=== PATIENT | female | born 1995 ===

== ENCOUNTER 2017-08-25 12:17 | Emergency (ER) | payer BC, MEDICAID, OTHER ==
[2017-08-25 12:42] VITALS: BP 133/97; PULSE 109; RESP 18; TEMP 98.7; O2SAT 97
--- NOTE | 2017-08-25 13:37 | ED PDOC ---
HPI:Nausea, Vomiting, Diarrhea Time Seen by Provider: 08/25/17 12:49 Chief Complaint (Nursing): Abdominal Pain History Per: Patient History/Exam Limitations: no limitations Onset/Duration Of Symptoms: Days (1) Current Symptoms Are (Timing): Still Present Severity: Mild Quality Of Discomfort: Cramping Associated Symptoms: Nausea, Vomiting, Diarrhea. denies: Fever, Chills, Back Pain, Chest Pain, Constipation, Urinary Symptoms Exacerbating Factors: None Alleviating Factors: None Additional History Per: Patient Past Medical History Reviewed: Historical Data, Nursing Documentation, Vital Signs Vital Signs: Last Vital Signs Temp 98.7 F 08/25/17 12:38 Pulse 109 H 08/25/17 12:38 Resp 18 08/25/17 12:38 BP 133/97 H 08/25/17 12:38 Pulse Ox 97 08/25/17 12:38 - Medical History PMH: No Chronic Diseases, Migraine - Surgical History Surgical History: Cholecystectomy - Family History Family History: States: Unknown Family Hx - Living Arrangements Living Arrangements: With Family - Social History Current smoker - smoking cessation education provided: No - Home Medications Home Medications: Ambulatory Orders Medication Instructions Recorded Acetaminophen [Tylenol 325mg tab] 650 mg PO Q4 PRN #0 tab 06/27/15 Acetaminophen/Butalbital/Caf 1 tab PO Q8 PRN #0 tab 06/27/15 [Fioricet] Acyclovir 800 mg PO TID #0 tab 06/27/15 Ibuprofen [Motrin Tab] 600 mg PO Q6 PRN #0 tab 06/27/15 Nortriptyline [Pamelor] 10 mg PO DAILY #0 cap 06/27/15 methylPREDNISolone [Medrol] 4 mg PO BID #0 tab 06/27/15 methylPREDNISolone [Medrol] 4 mg PO DAILY #0 tab 06/27/15 methylPREDNISolone [Medrol] 4 mg PO TID #0 tab 06/27/15 Calcium Carbonate/Vitamin D3 1 each PO BID 10 Days tab.chew 08/25/17 [Calcium 500+D Tablet Chew] Ondansetron [Zofran Odt] 4 mg PO TID PRN #12 odt 08/25/17 - Allergies Allergies/Adverse Reactions: Allergies Allergy/AdvReac Type Severity Reaction Status Date / Time No Known Allergies Allergy Verified 06/24/15 19:59 Review of Systems ROS Statement: Except As Marked, All Systems Reviewed And Found Negative Constitutional: Negative for: Fever, Chills Cardiovascular: Negative for: Chest Pain, Palpitations Respiratory: Negative for: Cough, Shortness of Breath Gastrointestinal: Positive for: Nausea, Vomiting, Abdominal Pain, Diarrhea. Negative for: Constipation, Hematochezia, Hematemesis, Rectal Pain Genitourinary Female: Negative for: Dysuria, Vaginal Discharge Neurological: Negative for: Weakness, Numbness Physical Exam - Reviewed Nursing Documentation Reviewed: Yes Vital Signs Reviewed: Yes - Physical Exam Appears: Positive for: Uncomfortable Head Exam: Positive for: ATRAUMATIC, NORMAL INSPECTION, NORMOCEPHALIC Skin: Positive for: Normal Color, Warm, Dry Eye Exam: Positive for: Normal appearance, EOMI, PERRL ENT: Positive for: Pharynx Is (clear,mmm) Neck: Positive for: Normal, Painless ROM, Supple. Negative for: Decreased ROM, Limited ROM, Trachea Midline Cardiovascular/Chest: Positive for: Regular Rate, Rhythm, Chest Non Tender. Negative for: Edema, Gallop, Murmur, Bradycardia, Tachycardia Respiratory: Positive for: Normal Breath Sounds. Negative for: Decreased Breath Sounds, Accessory Muscle Use, Crackles, Rales, Rhonchi, Stridor, Wheezing Pulses-Radial (L): 2+ Pulses-Radial (R): 2+ Gastrointestinal/Abdominal: Positive for: Normal Exam, Bowel Sounds, Soft. Negative for: Tenderness Back: Positive for: Normal Inspection. Negative for: L CVA Tenderness, R CVA Tenderness Extremity: Positive for: Normal ROM. 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 Negative for: Motor/Sensory Deficits, Cerebellar Tests, Aphasia, Facial Droop - Laboratory Results Result Diagrams: 08/25/17 14:02 08/25/17 14:02 - ECG ECG: Positive for: Interpreted By Tx ECG Rhythm: Positive for: Normal QRS, Normal ST Segment, Sinus Rhythm. Negative for: ST/T Changes Interpretation Of Abn EKG: rate of 88 no evidence of ischemia O2 Sat by Pulse Oximetry: 97 Pulse Ox Interpretation: Normal - Radiology X-Ray: Interpreted by Tx X-Ray Interpretation: No Acute Disease - Other Rad No standard instances X-Ray: Interpreted by Me X-Ray Interpretation: abd xray obs series 4 views no signs of obstruction no fa under the diaphra - Progress ED Course And Treament: non obs bg pattern, x improved tony po ere will give tums for calcium supplementation corrected ca is 8.1. pt leaves ambulatory and in good spirits. Re-evaluation Time: 15:00 Condition: Improved Disposition - Clinical Impression Clinical Impression: Dehydration, Gastroenteritis, Hypocalcemia - Patient ED Disposition Is Patient to be Admitted: No Counseled Patient/Family Regarding: Studies Performed, Diagnosis, Need For Followup - Disposition Referrals: [facility] [Outside] Disposition: Routine/Home Disposition Time: 15:32 Condition: GOOD Additional Instructions: Follow up in 2 to 3 days or with your pmd Prescriptions: Calcium Carbonate/Vitamin D3 [Calcium 500+D Tablet Chew] 1 each PO BID 10 Days tab.chew Ondansetron [Zofran Odt] 4 mg PO TID PRN #12 odt PRN Reason: Nausea/Vomiting Instructions: Gastroenteritis (ED), Hypocalcemia (ED) Forms: [employer] (Slovenian)
[2017-08-25] MEDS ORDERED: Sodium Chloride 0.9% 1,000 ML IV ONE (13:38)
[2017-08-25 14:11] LABS: BASO % 0.3 % (0.0-2.0); EOS # 0.1 K/uL (0.0-0.7); EOS % 0.6 % (0.0-4.0); HEMATOCRIT 42.6 % (34.0-47.0); LYMPH # 0.7 K/uL (1.0-4.3); LYMPH % 6.8 % (20.0-40.0); MEAN CELL VOLUME 80.9 fl (81.0-99.0); MEAN CORPUSCULAR HEMOGLOBIN 26.5 pg (27.0-31.0); MEAN CORPUSCULAR HGB CONC 32.7 g/dL (33.0-37.0); MEAN PLATELET VOLUME 9.3 fl (7.2-11.7); MONO # 0.7 K/uL (0.0-0.8); MONO % 6.6 % (0.0-10.0); NEUT # 8.5 K/uL (1.8-7.0); NEUT % 85.7 % (50.0-75.0); NRBC % 0.2 % (0.0-0.0); PLATELET COUNT 255 K/uL (130-400); RED CELL DISTRIBUTION WIDTH 14.1 % (11.5-14.5); WHITE BLOOD COUNT 9.9 K/uL (4.8-10.8)
[2017-08-25 14:22] LABS: RBC URINE 4 /hpf (0-3); URINE BACTERIA MOD (<OCC); URINE BILIRUBIN NEGATIVE (NEGATIVE); URINE BLOOD NEGATIVE (NEGATIVE); URINE COLOR YELLOW (YELLOW); URINE GLUCOSE (UA) NEG (Normal); URINE KETONE NEGATIVE (NEGATIVE); URINE LEUKOCYTE ESTERASE NEG Leu/uL (Negative); URINE PROTEIN 100 mg/dL (NEGATIVE); URINE UROBILINOGEN 0.2-1.0 mg/dL (0.2-1.0); WBC URINE 4 /hpf (0-5)
[2017-08-25 14:30] LABS: ALKALINE PHOSPHATASE 29 U/L (38-126); ALT/SGPT 87 U/L (9-52); AMYLASE 36 U/L (30-110); AST/SGOT 71 U/L (14-36); BILIRUBIN,TOTAL 0.4 mg/dl (0.2-1.3); BLOOD UREA NITROGEN 14 mg/dl (7-17); CALCIUM 7.5 mg/dL (8.4-10.2); CARBON DIOXIDE 20 mmol/L (22-30); CHLORIDE 111 mmol/L (98-107); GFR AFRICAN-AMERICAN > 60; GLUCOSE,RANDOM 126 mg/dL (65-105); LIPASE 59 U/L (23-300); POTASSIUM 3.7 MMOL/L (3.6-5.0); SODIUM 140 mmol/l (132-148); TOTAL PROTEIN 6.1 G/DL (6.3-8.2)
[2017-08-25 14:34] LABS: ALB/GLOB RATIO 1.1 (1.0-2.1)
--- NOTE | 2017-08-25 14:37 | RAD ---
PROCEDURE: Radiographs of the chest and abdomen (obstructive series) HISTORY: vomiting COMPARISON: No prior. TECHNIQUE: AP radiograph of the chest, with upright and supine radiographs of the abdomen. FINDINGS: CHEST: Lungs: Clear. Cardiovascular: Normal size heart. No pulmonary vascular congestion. Pleura: No pleural fluid. No pneumothorax. Other findings: None. ABDOMEN AND PELVIS: Bowel: Unremarkable bowel gas pattern. No evidence of mechanical obstruction. Free air: None. Bones: Unremarkable. Other findings: None. IMPRESSION: Unremarkable radiographs of chest and abdomen. No evidence of mechanical bowel obstruction. Concordant results with the preliminary interpretation rendered by the emergency department physician procedure.
[2017-08-25] MEDS ORDERED: Calcium Gluconate 4.65 mEq/10 ml Inj IV ONE (14:51)
[2017-08-25 15:04] LABS: NEUTROPHIL 86 % (42-75); TOTAL CELLS COUNTED 100
--- NOTE | 2017-08-26 08:27 | CARD ---
APPROVED REPORT EKG Measurement Heart [id number] [place] [id number] <Conclusion> Normal sinus rhythm Normal ECG
== END 2017-08-25 15:47 | disposition home or self-care (01) ==
LOC: H.ER 12:17
DX: E86.0 Dehydration (principal); K52.9 Noninfective gastroenteritis and colitis, unspecified; E83.51 Hypocalcemia
CPT/HCPCS: 74022; 80053; 81003; 81025; 82150; 83690; 84484; 84703; 85025; 93005; 99284; J7040

== ENCOUNTER 2017-12-06 20:01 | Emergency (ER) | payer BC, OTHER ==
[2017-12-06 20:15] VITALS: TEMP 98.8; O2SAT 98
[2017-12-06 21:18] VITALS: BP 128/67; PULSE 88; RESP 20
--- NOTE | 2017-12-06 21:58 | ED PDOC ---
HPI: Back Time Seen by Provider: 12/06/17 20:16 Chief Complaint (Nursing): Back Pain Chief Complaint (Provider): Back Pain History Per: Patient History/Exam Limitations: no limitations Onset/Duration Of Symptoms: Days (x2) Current Symptoms Are (Timing): Still Present Additional Complaint(s): 22 year old female with a history of migraines presents to the ER for evaluation of radiating back pain onset 2 days ago. Patient reports chronic back pain for three years and visited her PMD 3 days ago. She also states that she has an MRI scheduled in two days and reports incontinence while sleeping. She denies any fever, chills, nausea, vomiting, diarrhea, or abdominal pain. Patient offers no other medical complaints at this time. PMD: non-[facility] provider Past Medical History Reviewed: Historical Data, Nursing Documentation, Vital Signs Vital Signs: Last Vital Signs Temp 98.8 F 12/06/17 20:12 Pulse 88 12/06/17 21:18 Resp 20 12/06/17 21:18 BP 128/67 12/06/17 21:18 Pulse Ox 98 12/06/17 21:18 - Medical History PMH: Migraine - Surgical History Surgical History: Cholecystectomy, (x2) - Family History Family History: States: Unknown Family Hx - Immunization History Hx Tetanus Toxoid Vaccination: No Hx Influenza Vaccination: No Hx Pneumococcal Vaccination: No - Home Medications Home Medications: Ambulatory Orders Medication Instructions Recorded Acetaminophen [Tylenol 325mg tab] 650 mg PO Q4 PRN #0 tab 06/27/15 Acetaminophen/Butalbital/Caf 1 tab PO Q8 PRN #0 tab 06/27/15 [Fioricet] Acyclovir 800 mg PO TID #0 tab 06/27/15 Ibuprofen [Motrin Tab] 600 mg PO Q6 PRN #0 tab 06/27/15 Nortriptyline [Pamelor] 10 mg PO DAILY #0 cap 06/27/15 methylPREDNISolone [Medrol] 4 mg PO BID #0 tab 06/27/15 methylPREDNISolone [Medrol] 4 mg PO DAILY #0 tab 06/27/15 methylPREDNISolone [Medrol] 4 mg PO TID #0 tab 06/27/15 Calcium Carbonate/Vitamin D3 1 each PO BID 10 Days tab.chew 08/25/17 [Calcium 500+D Tablet Chew] Ondansetron [Zofran Odt] 4 mg PO TID PRN #12 odt 08/25/17 traMADol [Ultram] 50 mg PO Q6H PRN #15 tab 12/06/17 - Allergies Allergies/Adverse Reactions: Allergies Allergy/AdvReac Type Severity Reaction Status Date / Time No Known Allergies Allergy Verified 06/24/15 19:59 Review of Systems ROS Statement: Except As Marked, All Systems Reviewed And Found Negative Constitutional: Negative for: Fever, Chills Gastrointestinal: Negative for: Nausea, Vomiting, Abdominal Pain, Diarrhea Genitourinary Female: Positive for: Incontinence (while sleeping) Musculoskeletal: Positive for: Back Pain (chronic) Physical Exam - Reviewed Nursing Documentation Reviewed: Yes Vital Signs Reviewed: Yes - Physical Exam Appears: Positive for: Non-toxic, No Acute Distress Head Exam: Positive for: ATRAUMATIC, NORMAL INSPECTION, NORMOCEPHALIC Skin: Positive for: Normal Color, Warm, Dry Eye Exam: Positive for: Normal appearance Neck: Positive for: Normal, Painless ROM Respiratory: Positive for: Normal Breath Sounds. Negative for: Respiratory Distress Gastrointestinal/Abdominal: Positive for: Normal Exam, Soft. Negative for: Tenderness Back: Positive for: Normal Inspection. Negative for: L CVA Tenderness, R CVA Tenderness, Vertebral Tenderness Rectal: Positive for: Rectal Tone Is: (good) Extremity: Positive for: Normal ROM. Negative for: Deformity, Swelling Neurologic/Psych: Positive for: Alert, Oriented - ECG O2 Sat by Pulse Oximetry: 98 (RA) Pulse Ox Interpretation: Normal Medical Decision Making Medical Decision Making: Time: 20:53 Impression: 22 year old female with back pain Plan: --Tylenol 650 mg PO --Ultram 50 mg PO Scribe Attestation: Documented by Ailin Mora, acting as a scribe for Analy Peters PA-C Provider Scribe Attestation: All medical record entries made by the Scribe were at my direction and personally dictated by me. I have reviewed the chart and agree that the record accurately reflects my personal performance of the history, physical exam, medical decision making, and the department course for this patient. I have also personally directed, reviewed, and agree with the discharge instructions and disposition. Disposition - Clinical Impression Clinical Impression: Back pain - Disposition Disposition: Routine/Home Disposition Time: 22:05 Condition: GOOD Prescriptions: traMADol [Ultram] 50 mg PO Q6H PRN #15 tab PRN Reason: Pain Instructions: Tramadol Forms: [facility] (Khmer)
== END 2017-12-06 22:11 | disposition home or self-care (01) ==
LOC: H.ER 20:01
DX: M54.9 Dorsalgia, unspecified (principal); G89.29 Other chronic pain

== ENCOUNTER 2018-01-09 22:15 | Emergency (ER) | payer OTHER, BC ==
[2018-01-09 22:38] VITALS: O2SAT 99
[2018-01-10] MEDS ORDERED: Acetaminophen 325 MG/10.15 ML PO STA (00:03)
[2018-01-10] MEDS ORDERED: Naproxen 500 MG TAB PO ONE ×2 (00:04→00:30)
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
[2018-01-10 04:00] VITALS: BP 122/78; PULSE 71; RESP 20; TEMP 98
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
--- NOTE | 2018-01-12 13:41 | CARD ---
APPROVED REPORT EKG Measurement Heart [id number] [place] [id number] [id number] <Conclusion> Normal sinus rhythm Normal ECG
== END 2018-01-10 03:00 | disposition home or self-care (01) ==
LOC: H.ER 22:15
DX: S20.219A Contusion of unspecified front wall of thorax, initial encounter (principal); S40.012A Contusion of left shoulder, initial encounter; V43.52XA Car driver injured in collision with other type car in traffic accident, initial encounter; Y92.410 Unspecified street and highway as the place of occurrence of the external cause